=== PATIENT | male | born 1935 | race Caucasian/White ===

== ENCOUNTER 2025-01-06 09:26 | Outpatient (CLI) | payer MEDICARE, SELFPAY ==
--- NOTE | 2025-01-06 09:27 | XR_ITS ---
FINAL REPORT CLINICAL HISTORY: Left knee pain COMPARISON: None FINDINGS: LEFT KNEE 4 views of the left knee were obtained. There is no acute fracture or dislocation. 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 There is lateral subluxation. IMPRESSION: Degenerative/chronic changes without acute bony abnormality. Reviewed, Interpreted and Dictated by Alber Larry MD Transcribed by Demetrice Campbell Authenticated and [facility]
--- OUTSIDE RECORDS SUMMARY | 2025-01-06 09:31 | XMS_ITS | Patient Health Record ---
Author Organization [facility] Address [address] [place] [id number] Care Team Providers Care Gang Sawyer Name Role Phone Huber Cha Primary Care Provider Reason For Referral No Information Medications Medication SIG (Take, Route, Frequency, Duration) Notes Start Date End Date Status Advair Diskus 500-50 MCG/ACT 1 puff(s) i nhaled 2 times a day; Duration: 30 day(s) 11/08/2016 Active oxyBUTYnin Chloride ER 10 MG 1 tab(s) or ally once a day 05/11/2015 Not-Taking Doxycycline Hyclate 100 MG 1 tab(s) oral ly 2 times a day 12/14/2016 Active Flomax 0.4 MG TAKE ONE CAPSULE BY MOUTH EVERY DAY 30MIN AFTER A MEAL AT THE SAME TIME EACH DAY; Duration: 90 Active Omeprazole 20 MG 1 tab(s) orally once a day 07/25/2014 Active Singulair 10 MG 1 tab(s) orally once a day (in the evening) 08/19/2016 Active Meclizine HCl 12.5 MG 1 tab(s) orally 3 times a day prn 12/24/2014 Active Chlorthalidone 25 MG 1 tab(s) orally every other day Active Aspirin 81 MG 1 tab(s) orally once a day Active Coricidin HBP Cough/Cold 4-3 0 MG 1 tab(s) orally every 6 hours 09/20/2014 Not-Taking Fluticasone Propionate 50 MCG/ACT 1 spray in each nostril once a day Active hydroCHLOROthiazide 12.5 MG 1 tab(s) ora lly each AM Not-Taking Loratadine 10 MG 1 tab(s) orally once a day Active Atenolol 50 MG 1/2 orally AM and PM Not-Taking Breo Ellipta 200-25 MCG/ACT 1 puff(s) in haled once a day 06/24/2016 Active Neurontin 800 MG 1 tab(s) orally once a day 05/11/2015 Not-Taking Tamsulosin HCl 0.4 MG 1 cap(s) orally once a day Active Clotrimazole-Betamethasone 1-0.05 % applied topically 2 times a day 11/23/2014 Not-Taking Escitalopram Oxalate 10 MG 1 tab(s) oral ly once a day Active Meloxicam 15 MG 1 tab(s) orally once a day 05/11/2015 Active Losartan Potassium 25 MG 1 tab(s) orally once a day 02/22/2016 Not-Taking Immunizations Vaccine Route Administration Date Status Comme nts Fluzone High Dose (65yr and older) IM Intramuscular 02/14/2015 Administered Fluzone High Dose (65yr and older) IM Intramuscular 02/01/2016 Administered Fluzone High Dose (65yr and older) IM Intramuscular 01/13/2017 Administered Tetanus Tdap-Adacel (over 7yrs) IM Intramuscular 09/15/2014 Administered xFluzone (6mos and older)-trivalent IM Intramuscular 04/23/2013 Administered xFluzone High Dose-private (65yr&older) IM Intramuscular 01/15/2012 Administered xFluzone High Dose-private (65yr&older) IM Intramuscular 02/03/2014 Administered Problems Problem Type SNOMED Code ICD Code Onset Dates Problem Status W/U Status Risk Notes Problem Low back pain (742366467) Low back pain (M54.5) Active confirmed Problem Essential hypertension (78079771) Essential hypertension (I10) Active confirmed Problem 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) Depression with anxiety (F41.8) Active confirmed Problem Chronic pain (21623667) Other chronic pain (G89.29) Active confirmed Problem Angiotensin-convert ing-enzyme inhibitor adverse reaction (555905708) Adverse effect of angiotensin-conver ting-enzyme inhibitors, initial encounter (T46.4X5A) Active confirmed Problem Polyp of colon (disorder) (06347767) Colon polyps (K63.5) Active confirmed Problem Uncomplicated moderate persistent asthma (091474853) Moderate persistent asthma without complication (J45.40) Active confirmed Problem Attention deficit hyperactivity disorder, 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), predominantly inattentive type (F90.0) Active confirmed Problem Gastroesophageal reflux disease (598069998) Gastroesophageal reflux disease, esophagitis presence not specified (K21.9) Active confirmed Problem Allergic rhinitis caused by animal hair and dander (960213970768482) Non-seasonal allergic rhinitis due to pollen (J30.81) Active confirmed Problem 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) Active confirmed Plan Of Treatment No Information Insurance Providers Payer Name Payer Address Payer Phone Subscriber Number Group Number Insured Name Patient Relationship to Insured Coverage Start Date Coverage End Date [employer] (MEDIC[employer] E) [address] [address] [place] [address] [phone] [id number] Adan Harvey Self - patient is the insured Medical (General) History Medical History History ICD Code hypertension Arthritis Enlarged Prostate ADD Asthma Colon polyps Low back pain Adverse effect of angiotensi w-sdyajlqxzv-sruxcr inhibitors, initial encounter Depression with anxiety Non-seasonal allergic rhinitis due to po llen Polyarthropathy Gastroesophageal reflux disease, esophag itis presence not specified Surgical History Surgery Date(Month/Year) Tonsilectomy Gallbladder Removal 2008 knee replacement right Right eye cataract 30 years ago Hospitalization History Reason Date(Month/Year) Fractured Pelvis- [facility] 195 3 Kidney Stones- [facility] ER-elevated BP 08/05
== END 2025-01-06 23:59 | disposition home or self-care (01) ==
LOC: RAD 09:27
PROVIDERS: Visit Provider Physician Assistant
DX: M17.12 Unilateral primary osteoarthritis, left knee (principal)
CPT/HCPCS: 73562